=== PATIENT | male | born 1965 | race Caucasian/White ===

== ENCOUNTER 2018-05-16 22:47 | Emergency (ER) | payer SELFPAY ==
[2018-05-16 23:00] VITALS: O2SAT 97
[2018-05-16] MEDS ORDERED: LIDOCAINE 1% 10 ML VIAL INJ ONE (23:13)
[2018-05-16] MEDS ORDERED: CHLORHEXIDINE GLUCONATE 4 % 15 ML UD TOP ONE (23:13)
[2018-05-16] MEDS ORDERED: AMPICILLIN & SULBACTAM SODIUM 3 GM VIAL IM ONE (23:51)
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
[2018-05-17] MEDS ORDERED: TETANUS,DIPHTHERIA,PERTUSSIS 1 EA SYG IM ONE (00:01)
[2018-05-17 00:17] VITALS: BP 128/81; TEMP 97.9
== END 2018-05-17 00:16 | disposition home or self-care (01) ==
LOC: ER 22:47
DX: S01.511A Laceration without foreign body of lip, initial encounter (principal); S01.512A Laceration without foreign body of oral cavity, initial encounter; F10.129 Alcohol abuse with intoxication, unspecified; Z23 Encounter for immunization; Z87.891 Personal history of nicotine dependence; Y04.0XXA Assault by unarmed brawl or fight, initial encounter; Y92.89 Other specified places as the place of occurrence of the external cause
CPT/HCPCS: 90471; 90715; J0295